=== PATIENT | male | born 1970 | race Caucasian/White ===

== ENCOUNTER 2016-11-18 11:14 | Emergency (ER) | payer BC ==
[2016-11-18] MEDS ORDERED: IPRATROPIUM-ALBUTEROL 3 ML NEB INHALATION STA (11:22)
--- NOTE | 2016-11-18 11:25 | ED ---
URI HPI - General Chief Complaint: Upper Respiratory Infection Stated Complaint: Difficulty Breathing Time Seen by Provider: 11/18/16 11:19 Source: patient, RN notes reviewed Mode of arrival: ambulatory Limitations: no limitations - History of Present Illness Initial Comments: Patient 46-year-old male who presents emergency room today with a chief complaint of cough congestion over the last 3 days. Patient denies any sputum production. Patient states he has been taking Mucinex with little relief of his symptoms. Patient denies any other complaints or symptoms currently. Patient denies any recent fever, chills, shortness of breath, chest pain, back pain, abdominal pain, nausea or vomiting, numbness or tingling, dysuria or hematuria, constipation or diarrhea, headaches or visual changes, or any other complaints. - Related Data Home Medications Medication Instructions Recorded Confirmed Ascorbic Acid [Vitamin C] 500 mg PO DAILY 11/18/16 11/18/16 guaiFENesin [Mucinex] 600 mg PO DAILY PRN 11/18/16 11/18/16 Previous Rx's Medication Instructions Recorded Albuterol Inhaler [Ventolin Hfa 1 - 2 puff INHALATION Q4-6H PRN #1 11/18/16 Inhaler] inhaler Albuterol Nebulized [Ventolin 2.5 mg INHALATION Q4H PRN 10 Days 11/18/16 Nebulized] Allergies Allergy/AdvReac Type Severity Reaction Status Date / Time No Known Allergies Allergy Verified 11/18/16 11:29 Review of Systems ROS Statement: Those systems with pertinent positive or pertinent negative responses have been documented in the HPI. ROS Other: All systems not noted in ROS Statement are negative. Past Medical History Past Medical History: Diabetes Mellitus History of Any Multi-Drug Resistant Organisms: None Reported Past Surgical History: Ear Surgery, Hernia Repair Past Psychological History: No Psychological Hx Reported Smoking Status: Current every day smoker Past Alcohol Use History: Rare Past Drug Use History: None Reported General Exam - General Exam Comments Initial Comments: General: The patient is awake and alert, in no distress, and does not appear acutely ill. Eye: Pupils are equal, round and reactive to light, extra-ocular movements are intact. No nystagmus. There is normal conjunctiva bilaterally. No signs of icterus. Ears, nose, mouth and throat: There are moist mucous membranes and no oral lesions. Neck: The neck is supple, there is no tenderness or JVD. Cardiovascular: There is a regular rate and rhythm. No murmur, rub or gallop is appreciated. Respiratory: Bilateral expiratory wheeze. are non-labored, breath sounds are equal. No stridor, rales, or rhonchi. Musculoskeletal: Normal ROM, no tenderness. Strength 5/5. Sensation intact. Pulses equal bilaterally 2+. Neurological: A&O x 3. CN II-XII intact, There are no obvious motor or sensory deficits. Coordination appears grossly intact. Speech is normal. Skin: Skin is warm and dry and no rashes or lesions are noted. Psychiatric: Cooperative, appropriate mood & affect, normal judgment. Limitations: no limitations Course Vital Signs 11/18/16 11/18/16 11/18/16 11:16 11:34 11:45 Temperature 97.9 F Pulse Rate 92 80 88 Respiratory 20 Rate Blood Pressure 143/81 O2 Sat by Pulse 98 Oximetry 11/18/16 12:09 Temperature Pulse Rate Respiratory 18 Rate Blood Pressure O2 Sat by Pulse Oximetry Medical Decision Making - Medical Decision Making Patient reexamined at this time shows no signs of distress. Lung sounds improved after breathing treatment. Lung sounds clear bilaterally. Patient states improvement after breathing treatment states still not able to bring anything up with cough at this time. Patient x-ray reviewed shows no evidence of pneumonia. No other acute abnormalities. Results were discussed with the patient. Patient will be discharged home with breathing treatments at home to continue. Advised continue every 4-6 hours. Patient does have a history of diabetes. States currently not on any medications as things improve after he was able to lose weight. Disposition Clinical Impression: Acute bronchitis Disposition: HOME SELF-CARE Condition: Good Instructions: Acute Bronchitis (ED) Additional Instructions: Please use medication as discussed. Please follow-up with family doctor in the next 2 days of symptoms have not improved. Please return to emergency room if the symptoms increase or worsen or for any other concerns. Prescriptions: Albuterol Inhaler [Ventolin Hfa Inhaler] 1 - 2 puff INHALATION Q4-6H PRN #1 inhaler PRN Reason: Cough Albuterol Nebulized [Ventolin Nebulized] 2.5 mg INHALATION Q4H PRN 10 Days PRN Reason: Cough Referrals: None,Stated [Primary Care Provider] - 1-2 days Maine Alejandro MD [REFERRING] - 1-2 days Kylah Alvarado MD [STAFF PHYSICIAN] - 1-2 days Time of Disposition: 12:55
--- NOTE | 2016-11-18 12:03 | XR ---
EXAMINATION TYPE: XR chest 2V DATE OF EXAM: 11/18/2016 11:51 AM HISTORY: Cough and shortness of breath. REFERENCE: NONE. FINDINGS: The lungs are clear. Pleural space are clear. Heart size is normal. IMPRESSION: NO ACTIVE INTRATHORACIC DISEASE.
[2016-11-18 12:12] VITALS: RESP 18
[2016-11-18 13:16] VITALS: BP 134/90; PULSE 92; TEMP 97
== END 2016-11-18 13:25 | disposition home or self-care (01) ==
LOC: EC 11:14
DX: J20.9 Acute bronchitis, unspecified (principal); F17.200 Nicotine dependence, unspecified, uncomplicated
CPT/HCPCS: 71020; 94640; 99285